=== PATIENT | male | born 1960 | race Caucasian/White ===

== ENCOUNTER 2017-07-16 18:21 | Emergency (ER) | payer OTHER ==
[2017-07-16] MEDS ORDERED: Morphine 4 MG/ML Syringe IM ONE (18:25)
[2017-07-16] MEDS ORDERED: Sodium Chloride 0.9% 1,000 ML IV ONE (18:26)
[2017-07-16] MEDS ORDERED: Ketorolac 60 MG/2 ML SDV IM ONE (18:27)
[2017-07-16] MEDS ORDERED: Morphine 4 MG/ML Syringe IVPUSH ONE (19:20)
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
[2017-07-16] MEDS ORDERED: Sodium Chloride 0.9% 1,000 ML IV SCH (20:30)
[2017-07-16] MEDS ORDERED: Silver Sulfadiazine 1% Crm 50 GM Tube TOP ONE (21:01)
[2017-07-16] MEDS ORDERED: Acetaminophen/oxyCODONE 325-5 MG Tab PO ONE (21:01)
== END 2017-07-16 21:15 | disposition home or self-care (01) ==
LOC: FB.ED 18:21
DX: T23.261A Burn of second degree of back of right hand, initial encounter (principal); T23.262A Burn of second degree of back of left hand, initial encounter; T20.10XA Burn of first degree of head, face, and neck, unspecified site, initial encounter; Z79.82 Long term (current) use of aspirin; X14.1XXA Other contact with hot air and other hot gases, initial encounter; Y99.0 Civilian activity done for income or pay
CPT/HCPCS: 16025; 36415; 80048; 82550; 83880; 84484; 85025; 96361; 96372; 96374; 99285; J1885; J2270; J7040; A9270-GY